=== PATIENT | male | born 1985 | race Caucasian/White ===

== ENCOUNTER 2018-10-24 21:48 | Emergency (ER) | payer MEDICAID ==
[~2018-10-24] VITALS: Ht 170.2 cm; Wt 83.0 kg
[2018-10-24 21:55] VITALS: BP 128/63
[2018-10-24 23:20] VITALS: BP 128/63
== END 2018-10-24 23:20 | disposition home or self-care (01) ==
LOC: MED 21:48
DX: R07.89 Other chest pain (principal); Z90.49 Acquired absence of other specified parts of digestive tract
CPT/HCPCS: 71045; 93005; 99283; Q0092

== ENCOUNTER 2019-02-25 12:10 | Emergency (ER) | payer MEDICAID ==
[~2019-02-25] VITALS: Ht 167.6 cm; Wt 83.9 kg
[2019-02-25 12:15] VITALS: BP 132/85
--- NOTE | 2019-02-25 12:15 | NUR ---
2 VERTICAL LACERATIONS TO LEFT 1ST DIGIT S/P CRUSHED AGAINST HEAVY PIECE OF WOOD SLAMMED ONTO DIGIT---SWELLING LAST TETANUS SHOT RECEIVED 1 YR AGO HX--DENIES RX---NONE . DENIES N/V/D; SKIN IS PINK/WARM/DRY; AAOX4 WITH EVEN AND STEADY GAIT; LUNGS CLEAR BL; HR EVEN AND REGULAR; PT DENIES ANY FEVER, CP, SOB, OR COUGH AT THIS TIME; PATIENT STATES PAIN OF 8/10 AT THIS TIME; VSS; PATIENT POSITIONED FOR COMFORT; HOB ELEVATED; BEDRAILS UP X2; BED DOWN. ER MD MADE AWARE OF PT STATUS.
--- NOTE | 2019-02-25 12:35 | NUR ---
PT TO X-RAY VIA WC
[2019-02-25] MEDS ORDERED: LIDOCAINE MPF 1% 10 MG/ML VIAL INJ ONE (12:55)
[2019-02-25 14:21] VITALS: BP 132/81
--- NOTE | 2019-02-25 14:22 | NUR ---
Patient discharged with v/s stable. Written and verbal after care instructions given and explained. Patient alert, oriented and verbalized understanding of instructions. Ambulatory with steady gait. All questions addressed prior to discharge. ID band removed. Patient advised to follow up with PMD. Rx of IBUPROFEN AND KEFLEX given. Patient educated on indication of medication including possible reaction and side effects. Opportunity to ask questions provided and answered. TOLD PT TO COME BACK RECHECK IN 7 DAYS.
== END 2019-02-25 14:22 | disposition home or self-care (01) ==
LOC: MED 12:10
DX: S61.012A Laceration without foreign body of left thumb without damage to nail, initial encounter (principal); Z90.49 Acquired absence of other specified parts of digestive tract; W31.89XA Contact with other specified machinery, initial encounter; Y93.89 Activity, other specified; Y92.89 Other specified places as the place of occurrence of the external cause; Y99.8 Other external cause status
CPT/HCPCS: 12001; 73130; 99283; J2001

== ENCOUNTER 2019-03-12 17:01 | Emergency (ER) | payer MEDICAID ==
[~2019-03-12] VITALS: Ht 167.6 cm; Wt 81.6 kg
[2019-03-12 17:38] VITALS: BP 131/69
[2019-03-12 17:46] VITALS: BP 128/76
== END 2019-03-12 20:21 | disposition left against medical advice (07) ==
LOC: MED 17:01
DX: J02.9 Acute pharyngitis, unspecified (principal)
CPT/HCPCS: 99283

== ENCOUNTER 2019-03-13 03:28 | Emergency (ER) | payer MEDICAID ==
[~2019-03-13] VITALS: Ht 167.6 cm; Wt 83.5 kg
[2019-03-13 03:31] VITALS: BP 119/85
--- NOTE | 2019-03-13 03:31 | NUR ---
34 Y/O FEVER AND COUGH X2 DAYS. TYLENOL TAKEN 1 HOUR CHURN [employer] HEL[employer]. PATIENT STATES HIS MOTHER CAME BACK FROM [place] ON SUNDAY AND HAD COLD LIKE SYMPTOMS. ON SUNDAY, HE STARTED EXHIBITING THE SAME SYMPTOMS. HE WAS CONCERNED BECAUSE HE HEARD OF THE KERR VIRUS IN THE NEWS. LUNG SOUNDS CLEAR/DIMINISHED THROUGHOUT; BREATHING UNLABORED AND SYMMETRICAL. PATIENT STATES HE HAS A DRY COUGH. ABDOMEN SOFT AND ROUNDl BOWEL SOUNDS HEARD THROUGHOUT. DENIES N/V/D. 4/10 GENERALIZED PAIN AND MALAISE NOTED. ERMD MADE AWARE OF STATUS. SIDE RAILSX1. WILL CONTINUE TO MONITOR. NO FEVER NOTED AT THIS TIME. MEDHX- NONE NKA RX:DENIES
--- NOTE | 2019-03-13 05:23 | NUR ---
PATIENT RESTING WITH EYES CLOSED AT THIS TIME. WILL CONTINUE TO MONITOR.
--- NOTE | 2019-03-13 05:27 | NUR ---
VSS: 114/77; 96% ON RA; 78 BPM; 14RR; PAIN 2/10.
[2019-03-13 06:00] VITALS: BP 120/75
--- NOTE | 2019-03-13 06:00 | NUR ---
DISCHARGE DONE BY DR MITCHELL. Patient discharged with v/s stable. Written and verbal after care instructions ABOUT UPPER RESPIRATORY INFECTIONS given and explained. Patient alert, oriented and verbalized understanding of instructions. Ambulatory with steady gait. All questions addressed prior to discharge. ID band removed. Patient advised to follow up with PMD. Rx of AUGMENTIN given. Patient educated on indication of medication including possible reaction and side effects. Opportunity to ask questions provided and answered.
== END 2019-03-13 06:00 | disposition home or self-care (01) ==
LOC: MED 03:28
DX: J02.9 Acute pharyngitis, unspecified (principal); Z90.49 Acquired absence of other specified parts of digestive tract
CPT/HCPCS: 99283

== ENCOUNTER 2019-05-05 17:05 | Emergency (ER) | payer MEDICAID ==
[~2019-05-05] VITALS: Ht 167.6 cm; Wt 83.9 kg
[2019-05-05 17:15] VITALS: BP 140/96
--- NOTE | 2019-05-05 17:35 | NUR ---
34 Y/O M C/C SORE THROAT / COUGH X 1 DAY. PER PT NOT TAKEN OTC RX. PT NKA. NO HX. NO RX. NO N/V/D. SIDE RAIL X1.
--- NOTE | 2019-05-05 17:36 | NUR ---
PT AMBULATED TO BATHROOM FOR URINE SAMPLE, STEADY GAIT.
--- NOTE | 2019-05-05 17:38 | NUR ---
FLU SWAB COLLECTED AND LAB CALLED FOR PICKUP
[2019-05-05] MEDS ORDERED: KETOROLAC 30 MG/ML VIAL IM ONE (18:40)
[2019-05-05 19:10] VITALS: BP 140/96
--- NOTE | 2019-05-05 19:10 | NUR ---
Patient discharged with v/s stable. Written and verbal after care instructions given and explained. Patient alert, oriented and verbalized understanding of instructions. Ambulatory with steady gait. All questions addressed prior to discharge. ID band removed. Patient advised to follow up with PMD. Rx of IBUPROFEN,ACETAMINOPHEN given. Patient educated on indication of medication including possible reaction and side effects. Opportunity to ask questions provided and answered.
== END 2019-05-05 19:10 | disposition home or self-care (01) ==
LOC: MED 17:05
DX: S39.012A Strain of muscle, fascia and tendon of lower back, initial encounter (principal); J06.9 Acute upper respiratory infection, unspecified; X58.XXXA Exposure to other specified factors, initial encounter; Y93.89 Activity, other specified; Y92.89 Other specified places as the place of occurrence of the external cause; Y99.8 Other external cause status
CPT/HCPCS: 81002; 87804; 96372; 99283; J1885

== ENCOUNTER 2019-10-11 20:03 | Emergency (ER) | payer MEDICAID ==
[~2019-10-11] VITALS: Ht 172.7 cm; Wt 84.8 kg
[2019-10-11 20:16] VITALS: BP 130/74
--- NOTE | 2019-10-11 20:20 | NUR ---
PT AMBULATED TO BED 05 WITH STEADY GAIT.
--- NOTE | 2019-10-11 20:40 | NUR ---
Dr. Recio examining patient.
--- NOTE | 2019-10-11 20:45 | NUR ---
34 Y/O MALE C/O INTERMITTENT CHEST PAIN RADIATING TO LEFT ARM X 2 DAYS. 10 PAIN. SINUS RHYTHM ON MONITOR. VSS. MEDHX: JILLIANIES ALLISONA
--- NOTE | 2019-10-11 20:53 | NUR ---
Albaro joshua in [facility] - 10/11/19 at 2055 by [email or web address] PT AMBULATED TO RESTROOM STEADY GAIT
--- NOTE | 2019-10-11 20:54 | NUR ---
Albaro joshua in [facility] - 10/11/19 at 2055 by [email or web address] PT AMBUALTED BED , STEADY GAIT
--- NOTE | 2019-10-11 21:00 | NUR ---
ERMD AT BEDSIDE EVALUATING PT
[2019-10-11 21:35] VITALS: BP 130/74
--- NOTE | 2019-10-11 21:35 | NUR ---
Patient discharged with v/s stable. Written and verbal after care instructions given and explained. Patient alert, oriented and verbalized understanding of instructions. Ambulatory with steady gait. All questions addressed prior to discharge. ID band removed. Patient advised to follow up with PMD. Rx of VALIUM AND IBUPROFEN given. Patient educated on indication of medication including possible reaction and side effects. Opportunity to ask questions provided and answered.
== END 2019-10-11 21:35 | disposition home or self-care (01) ==
LOC: MED 20:03
DX: R07.89 Other chest pain (principal); X50.0XXA Overexertion from strenuous movement or load, initial encounter; Y93.89 Activity, other specified; Y92.89 Other specified places as the place of occurrence of the external cause; Y99.8 Other external cause status
CPT/HCPCS: 93005; 99283